=== PATIENT | female | born 1975 | race Caucasian/White ===

== ENCOUNTER → 2017-05-07 | Outpatient (CLI) | payer OTHER | LOC: CIMAGING 07:49 | PROVIDERS: ATTEND Physician Assistant | DX: D25.1 Intramural leiomyoma of uterus (principal); D25.2 Subserosal leiomyoma of uterus | CPT/HCPCS: 76856-PO ==

== ENCOUNTER → 2018-12-22 | Outpatient (CLI) | payer MEDICAID | LOC: FIMAGING 16:27 | PROVIDERS: ATTEND Family Medicine | DX: M79.672 Pain in left foot (principal) ==

== ENCOUNTER → 2019-03-12 | Outpatient (CLI) | payer MEDICAID | LOC: BRMIMAGING 07:43 ==